=== PATIENT | male | born 1960 | race Caucasian/White ===

== ENCOUNTER 2016-12-04 08:23 | Emergency (ER) | payer SELFPAY ==
[2016-12-04 08:36] VITALS: BP 131/72
--- NOTE | 2016-12-04 09:22 | UC ---
Shoulder Pain HPI - HPI Summary HPI Summary: right handed male with 1mo of right shoulder pain and right arm weakness following fall. there is no pain in the neck. - History of Current Complaint Chief Complaint: UCUpperExtremity Stated Complaint: RIGHT ARM INJURY (WC) Time Seen by Provider: 12/04/16 09:16 Hx Obtained From: Patient Onset/Duration: Sudden Onset, Lasting Weeks Timing: Constant Severity Initially: Severe Severity Currently: Moderate Character: Dull, Aching Aggravating Factor(s): Movement, Lifting, Abduction Alleviating Factor(s): Rest Associated Signs And Symptoms: Positive: Negative - Allergies/Home Medications Allergies/Adverse Reactions: Allergies Allergy/AdvReac Type Severity Reaction Status Date / Time No Known Allergies Allergy Verified 12/04/16 08:30 PMH/Surg Hx/FS Hx/Imm Hx Previously Healthy: Yes Endocrine History Of: Denies: Diabetes - Surgical History Surgical History: None - Family History Known Family History: Positive: Other - no related orthopedic hx. - Social History Occupation: Employed Full-time - he works as a first sampler. Alcohol Use: Occasionally Substance Use Type: None Smoking Status (MU): Never Smoked Tobacco Review of Systems All Other Systems Reviewed And Are Negative: Yes Physical Exam Triage Information Reviewed: Yes Appearance: Well-Appearing, Pain Distress - pain with certain arm movement. Vital Signs: Initial Vital Signs Temp 98.5 F 12/04/16 08:31 Pulse 67 12/04/16 08:31 Resp 20 12/04/16 08:31 BP 131/72 12/04/16 08:31 Pulse Ox 100 12/04/16 08:31 Vital Signs Reviewed: Yes Eye Exam: Normal Eyes: Positive: Conjunctiva Clear. Negative: Conjunctiva Inflamed ENT Exam: Normal ENT: Positive: Normal ENT inspection, Hearing grossly normal, Pharynx normal. Negative: Pharyngeal erythema Neck exam: Normal Neck: Positive: Supple, Nontender, No Lymphadenopathy. Negative: Nuchal Rigidity, Tenderness @, Enlarged Nodes @ Respiratory Exam: Normal Respiratory: Positive: Chest non-tender, Lungs clear, Normal breath sounds, No respiratory distress, No accessory muscle use. Negative: Respiratory distress, Decreased breath sounds, Accessory muscle use, Crackles, Rhonchi, Stridor Cardiovascular: Positive: RRR, No Murmur, Pulses Normal, Brisk Capillary Refill Abdomen Description: Positive: Nontender, No Organomegaly, Soft Musculoskeletal Exam: Other - no pinpoint tenderness. there is significant pain or weakness with elbow flexion or forearm pronation or suppination. Hook test of biceps normal. no anterior long head biceps tenderness. there is obvious weakness and pain with empty can. Apley crossover neg. Neurological Exam: Normal Neurological: Positive: Alert, Muscle Tone Normal. Negative: Fatigued Psychological Exam: Normal Skin Exam: Normal Skin: Negative: rashes Shoulder Course/Dx - Course Course Of Treatment: likely rotator cuff at least partial tear. orthopedics for follow up. - Differential Dx/Diagnosis Differential Diagnosis/HQI/PQRI: Abrasion, AC Separation, Arthritis, Burn, Bursitis, Contusion, Fracture (Closed), Fracture (Open), Puncture Wound, Rotator Cuff Injury, Sprain, Strain, Tendonitis, Thoracic Outlet Syndrome Provider Diagnoses: rotator cuff injury right traumatic. Discharge - Discharge Plan Condition: Good Disposition: HOME Patient Education Materials: Rotator Cuff Injury (ED) Referrals: Rosio Jeffries MD [Primary Care Provider] - Amandeep Salinas MD [Medical Doctor] - 2 Days
== END 2016-12-04 09:22 | disposition home or self-care (01) ==
LOC: UCCORT 08:23
DX: S46.001A Unspecified injury of muscle(s) and tendon(s) of the rotator cuff of right shoulder, initial encounter (principal); W19.XXXA Unspecified fall, initial encounter; Y93.9 Activity, unspecified; Y92.9 Unspecified place or not applicable
CPT/HCPCS: 99201; G0463